=== PATIENT | male | born 1945 | race Caucasian/White ===

== ENCOUNTER 2024-07-27 12:56 | Inpatient (IN) | payer MEDICARE, SELFPAY ==
[2024-07-27] VITALS (60 sets, daily range): BP systolic 60–146; BP diastolic 48–105; BMI 23.8
[2024-07-27] MEDS: NSS 1000 IV ×2 (09:55→10:15)
--- NOTE | 2024-07-27 10:13 | ED.GENMED ---
History of Present Illness
General
Chief Complaint: Chest Pain
Source: patient and ambulance crew
Exam Limitations: none
Time Seen by Provider: 07/27/24 10:02
Nursing documentation reviewed up to this point in time: agreed with
History of Present Illness
History of Present Illness:
Patient presents to ED from home secondary to chest pain. Per paramedics, initial 911 call was placed secondary to chest pain at home. When arrived at patient's house, patient was complaining of chest pain and was found to be diaphoretic and
hypotensive. Patient was given 500 mL normal saline route to the hospital. Patient was given 325 mg aspirin by patient's spouse prior to arrival by paramedics. Upon arrival in ED, patient is found to be hypotensive and patient reports feeling
fatigued/tired. However, patient denies chest pain. Denies headache. Denies shortness of breath. Denies nausea. Denies neck pain. Denies sore throat. Denies recent illness. Denies previous history of similar symptoms.
Review of Systems
Review of Systems
Allergies reviewed?: Yes
All Other Systems: ROS reviewed and negative except as documented in HPI and ROS
Constitutional: Reports no symptoms
EENT: Reports no symptoms
Respiratory: Reports no symptoms; Denies trouble breathing
Cardiac: Reports chest pain and diaphoresis; Denies palpitations
ABD/GI: Reports no symptoms; Denies nausea or vomiting
: Reports no symptoms
Musculoskeletal: Reports no symptoms
Skin: Reports no symptoms
Neurological: Reports dizzy; Denies headache or weakness
Phy Exam
Physical Exam
Physical Exam:
Physical Exam
General: moderate distress, acutely ill. afebrile. hypotensive.
Head: nc/at. eomi
Neck: supple. no meningeal signs.
Heart: s1/s2 regular rate and rhythm, no murmur. equal radial pulses.
Lungs: no acute respiratory distress. clear bilaterally
Abdomen: normal bowel sounds. not tender.
Neuro: alert and oriented. no focal sensory/motor deficit. left facial droop noted with intermittent slurred speech.
Skin: no rash
Psychiatric: well kept. interactive and cooperative
Extremities: no edema. no calf tenderness.
Scores
Heart Score for Chest Pain Patients
STEMI patient?: Not applicable
Course
Orders/Labs/Results
Orders:
Orders
07/27/24 09:55
Electrocardiogram (*1) Urgent
Reason for Study: Chest Pain
07/27/24 09:56
EKG- Treatment ONCE
07/27/24 Lunch
NPO
Allow oral meds: No
Allow clear liquids: No
07/27/24 10:10
CR Chest Portable - 1 View Urgent
Comment:
Reason For Exam: chest pain/hypoxia
Reason Study Needs to be Portable: Patient Unstable
07/27/24 10:25
Arterial Blood Gas Urgent
%Oxygen/Room Air: 80
Complete Blood Count/With Diff Urgent
Comprehensive Metabolic Panel Urgent
Magnesium Urgent
Troponin I Urgent
07/27/24 10:33
NORepinephrine 4 MG/250 ML [Levophed] 4 mg in 250 ml .ROUTE .STK-MED
07/27/24 10:44
Lactic Acid Urgent
07/27/24 10:45
NORepinephrine 4 MG/250 ML [Levophed] 4 mg in 250 ml IV PER PROTOCOL
Initial dose in mcg/min, then titrate:: 5
Titrate to keep:: SBP > 90 mmHg
Titrate by mcg/min:: 1-2 mcg/min
Frequency of titrations (minutes):: 5
Maximum dose in ICU in mcg/min:: 30
Maximum dose in IMU in mcg/min:: 8
Maximum dose in IVU in mcg/min:: 4
Begin to taper infusion when:: Remained at goal for 4hrs
Taper by mcg/min:: 1-2 mcg/min
Frequency of taper (minutes) if patient maintains goal:: 30
Taper to off?: Yes
If infusion off & no longer maintaining goal:: Contact Provider
07/27/24 10:56
CT Chest Pe Study Urgent
Comment:
Reason For Exam: chest pain/hypoxia
07/27/24 11:01
Straight cath- Treatment ONCE
0.9% Sodium Chloride 1000 ml [Nss] 1,000 ml IV BOLUS
07/27/24 11:02
0.9% Sodium Chloride 1000 ml [Nss] 1,000 ml IV BOLUS
07/27/24 11:21
PT/INR [Prothrombin Time] Urgent
PTT Urgent
07/27/24 11:22
Urinalysis Reflex To Culture Urgent
Date Specimen was Collected: 07/27/24
Time Specimen was Collected: 11:21
Urine Microscopic Reflex Cult Urgent
07/27/24 11:23
Heparin 5,000 units .ROUTE .STK-MED ONE
07/27/24 11:25
Heparin 6,000 units IV NOW STA
Nursing to Place Non Medication Order As Directed
Physician Order: PTT 6 hours after initial start of Heparin infusion
Above order entered?: Yes
07/27/24 11:30
Heparin 52211 Units/250 ml 25,000 units in 250 ml IV PER PROTOCOL
Weight to be used for heparin protocol in kilograms (kg):: 75.2
Protocol:: DVT/PE
PTT Goal Range to be used:: PTT 73 to 111 seconds
Order type:: Initial
INITIAL Infusion Dose (UNITS/KG/hr) & then follow protocol:: 18 units/kg/hr
Infusion Dose in UNITS/hr & then follow protocol (UNITS/hr):: 1,400
INFUSION RATE in mL/hr & then follow protocol (mL/hr):: 14
For DVT/PE algorithm, re-bolus for low PTT?: Yes
PTT less than or equal to 64 seconds:: Re-bolus 80 units/kg (max 10,000units). Increase by 300 units/hr
(+ 3mL/hr)
PTT 64.1 to 72.9 seconds:: Re-bolus 40 units/kg (max 5,000 units). Increase by 200 units/hr
(+ 2mL/hr)
PTT 73 to 111 seconds:: Target Range. No change in rate.
PTT 111.1 to 130.9 seconds:: Decrease rate by 200 units/hr (- 2 mL/hr)
PTT 131 to 199.9 seconds:: HOLD for 1 hr. Then decrease by 200 units/hr (- 2mL/hr)
PTT greater than or equal to 200 seconds:: HOLD for 2 hrs & Notify Provider. Then decrease by 300 units/hr
(- 3mL/hr)
Lab follow-up:: Each change, PTT q6h until 2 consecutive are therapeutic. Then
PTT daily.
07/27/24 11:32
Heparin 3,000 units IV PRN PRN
Heparin 6,000 units IV PRN PRN
07/27/24 12:15
Echo 2D MMode Color/Doppler Routine
Reason for Study: Submassive pulmonary embolism
07/27/24 12:40
Admit/Transfer Patient As Directed
Co-Sign Provider:
Level of Care: Inpatient admission
Assign to:: ICU
Physician / Group: [facility]
Diagnosis: acute bilateral PE, shock, acute hypoxic RF
Reason for Hospitalization: acute bilateral PE, shock, acute hypoxic RF
Expected length of stay greater than two midnights?: Yes
ELOS- Estimated Length of Stay in days: 4
I certify the patient meets the requirements for IP care: Yes
Code Status As Directed
Resuscitation Status: Full Code
PRN Pain Medication Management As Directed
May give lesser potent ordered pain med per pt: Yes
preference::
Protocol:: Medication orders for pain may be administered in a
manner that supports deferring to patient preference
when the pt is:
- Requesting an ordered lesser potent pain medication.
Least to most potent pain medications are defined
as: acetaminophen < NSAID < tramadol < opioids
(morphine, oxycodone, hydromorphone).
- Requesting a lesser dose of the same medication IF
ORDERED.
- Requesting a less intrusive route of administration
if both routes are prescribed by the provider (PO <
IV).
07/27/24 12:44
CARDIOLOGY CONSULT Routine
Consulting Provider: Loren Hayden
Was physician already notified: Yes
M[employer]al [employer] Consult Routine
Consulting Provider: Akash Jones
Was physician already notified: Yes
07/27/24 14:08
0.9% Sodium Chloride [Nss (Preservative Free)] See Protocol IV PRN PRN
Acetaminophen [Tylenol] 650 mg PO Q4HPRN PRN
Bisacodyl [Dulcolax] 10 mg RECTAL [id number] PRN
Docusate W/Senna [Senokot-S] 1 tablet PO BIDPRN PRN
FOLic ACID [Folvite] 1 mg 0.9% Sodium Chloride 50 ml [Nss] 50 ml IV DAILYPRN
Lorazepam [Ativan] 1 mg IV Q1HPRN PRN
Lorazepam [Ativan] 1 mg PO Q2HPRN PRN
Lorazepam [Ativan] 2 mg IV Q1HPRN PRN
Polyethylene Glycol Powder [Miralax] 17 grams PO DAILYPRN PRN
07/27/24 14:08
Case Management Consult Once
Case Management Consult: Other
Comment: Substance abuse counseling
DIETARY CONSULT Routine
Reason for Consult: Nutrition support, possible refeeding guidelines
Activity As Directed
Activity Level: As Tolerated
MSAS SCORE As Directed
MSAS Score 0-4: Repeat MSAS every 2 hours until 0-4 for three consecutive assessments, then every 4 hours x 48
hours.
MSAS Score 5-7: For MILD withdrawl symptoms. Repeat MSAS and RASS every 2 hours
MSAS Score 8-11: For MODERATE withdrawal symptoms. Repeat MSAS and RASS every 1 hour. Consider ICU or IMU
level of care.
MSAS Score > 11: For SEVERE withdrawal symptoms. Repeat MSAS and RASS every 1 hour. Notify provider, consider
ICU level of care.
MSAS Additional Instructions: If no improvement or no decrease in score from severe to moderate within 12
hours, consult psychiatry
MSAS Notify Provider: Notify provider if patient requires more than 10 mg of Lorazepam in eight hour period.
Vital Signs As Directed
Frequency: Per unit guidelines
07/27/24 15:13
Urine Drug Abuse Screen Routine
Date Specimen was Collected: 07/27/24
Time Specimen was Collected: 14:38
07/27/24 18:16
Troponin I Q6H
07/27/24 20:00
Thiamine Injection 200 mg IV Q12
07/28/24 02:18
Basic Metabolic Panel IN AM
Complete Blood Count/With Diff IN AM
Magnesium IN AM
Phosphorus IN AM
07/28/24 08:00
FOLic ACID [Folvite] 1 mg PO DAILY
Nicotine [Nicoderm Transdermal] 14 mg TRANSDERM DAILY
07/28/24 09:00
US Periph Venous LOWER Ext Matty Routine
Reason For Exam: LE swelling/acute PE
07/29/24 06:00
Basic Metabolic Panel IN AM
Complete Blood Count/With Diff IN AM
07/30/24 06:00
Basic Metabolic Panel IN AM
Complete Blood Count/With Diff IN AM
07/30/24 20:00
Thiamine HCl [Vitamin B1] 100 mg PO BID
Abnormal Lab Results
07/27/24 07/27/24 07/27/24
10:25 10:44 11:22
WBC 21.5 H 10^3/uL
(4.8-10.8)
MCV 99.4 H fL
(80.0-94.0)
MCH 33.4 H pg
(27.0-31.0)
RDW 14.9 H %
(11.5-14.5)
Abs Immat Gran (auto) 0.2 H 10^3/uL
(0-0.05)
Absolute Neuts (auto) 17.6 H 10^3/uL
(1.4-6.5)
Absolute Monos (auto) 1.8 H 10^3/uL
(0.1-0.6)
Immature Gran % 1.0 H %
(0-0.5)
Neutrophils % 81.5 H %
(42.2-75.2)
Lymphocytes % 8.2 L %
(20.5-51.1)
pCO2 31 L mmHg
(35-48)
pO2 47 L* mmHg
(83-108)
HCO3 17.9 L mmol/L
(21-28)
ABG O2 Sat (Measured) 80.0 L %
(94-98)
Chloride 108 H mmol/L
(98-107)
Carbon Dioxide 19 L mmol/L
(22-30)
Glucose 168 H mg/dl
(70-99)
Lactic Acid 2.2 H mmol/L
(0.7-2.0)
Total Bilirubin 1.4 H mg/dl
(0.2-1.3)
Troponin I 7.520 H* ng/ml
Urine Ketones 2+ A
(Negative)
Urine Bilirubin 1+ A
(Negative)
Urine Urobilinogen 2+ A
(Neg - 1+)
Leukocyte Esterase Rfl Trace A
(Negative)
Urine Bacteria (Reflex) Few A
(Negative)
07/27/24 10:25
07/27/24 10:25
Vital Signs
Initial and Last Documented VS:
Initial Vital Signs
Temp Pulse Resp BP Pulse Ox
98.8 F 101 24 64/52 97
07/27/24 09:56 07/27/24 09:56 07/27/24 09:56 07/27/24 09:56 07/27/24 09:56
Last Documented Vital Signs
Temp Pulse Resp BP Pulse Ox
98.5 F 85 21 103/66 92
07/28/24 07:51 07/28/24 07:00 07/28/24 07:00 07/28/24 07:00 07/28/24 07:59
MDM/Problems Addressed
MDM/Problems Addressed:
Patient evaluated immediately upon arrival, secondary to hypotension and hypoxia. Patient started on IV fluids immediately along with multiple IV placement peripherally. Chest x-ray without any acute findings. Arterial blood gas confirms hypoxia
with low PaO2 level. Patient will be started on mid flow oxygen. Despite initial IV fluid bolus, patient remains hypotensive. Patient will be started on IV Levophed infusion along with continual IV fluid administration. In light of patient's
presentation, high likelihood and suspicion for pulmonary embolism. As such, stat CTA PE study ordered.
CTA PE study confirms bilateral PE with right heart strain. Elevated troponin noted as well. Patient started on heparin protocol. PERT alert activated.
Discussed with [employer] worker, Dr. Damon, who will come evaluate patient, and afterward speak with IRad attending Dr. Brown, for potential IV thrombolysis. Patient will be admitted to ICU for further evaluation and treatment. Admitting
hospitalist notified via [place] text.
Critical care statement: A total of 100 minutes of critical care time was provided for this patient. This includes management of unstable vital signs, evaluation of the patient at bedside, reviewing the patient's pertinent medical records,
discussion with consultants, review of old EKGs and review of pertinent medical records. This time with separate from time utilized to perform the aforementioned documented procedures
*EKG
Interpreted by ED Provider?: Yes
EKG Intrepretation Date: 07/27/24
Heart Rate: 91
Rate: normal
Rhythm: sinus
Interval: long QT
QRS Pattern: normal QRS
Ischemia: ST depression
*Critical Care Note
Total Time (30-74mins, 75-104mins- exclusive of procedures): 100 min
ED Attending Note
-
Portions of this chart may have been created with voice recognition software.� Occasional wrong word or��sound alike� substitutions may have occurred due to the inherent limitations of voice recognition software.
Discharge Plan
Departure
Patient Disposition: Admit
Date of Disposition: 07/27/24
Time of Disposition: 11:34
Admit to: ICU
Presentation/result/management discussed w/ accepting MD/DO: Hospitalist
Discharge Problem:
Pulmonary embolism
Interventions
Interventions:
*Risk Screen - Suicide Last Done: 07/27/24 09:56
*General Assessment Last Done: 07/27/24 09:56
*Neglect/Abuse Screening Last Done: 07/27/24 13:40
ED- Fall Risk Assessment Last Done: 07/27/24 13:40
*ED COVID-19 Vaccine History Last Done: 07/27/24 11:50
*Nursing Disposition Last Done: 07/27/24 13:40
ED- Cardiac Assessment Last Done: 07/27/24 10:29
Discharge Date and Time
Discharge Date/Time: 07/27/24 13:40
[2024-07-27 10:39] LABS: B.E. -6.2 mmol/L; HCO3 17.9 mmol/L (21-28); PCO2 31 mmHg (35-48); pH 7.37 (7.35-7.45)
[2024-07-27] MEDS: LEVOPHED 250 IV (10:39)
[2024-07-27 10:51] LABS: PO2 47 mmHg (83-108)
[2024-07-27 10:54] LABS: ALT (SGPT) 16 U/L (0-50); AST (SGOT) 42 U/L (17-59); Alkaline Phosphatase 114 U/L (38-126); Blood Urea Nitrogen 11 mg/dl (9-20); Calcium 8.7 mg/dl (8.4-10.2); Carbon Dioxide 19 mmol/L (22-30); Chloride 108 mmol/L (98-107); Estimated Creatinine Clearance 53 ml/min; Glucose 168 mg/dl (70-99); Magnesium 1.6 mg/dl (1.6-2.3); Sodium 142 mmol/L (135-145); Total Bilirubin 1.4 mg/dl (0.2-1.3); Total Protein 6.9 g/dl (6.3-8.2); eGFR > 60.00
[2024-07-27 10:55] LABS: Hematocrit 47.3 % (39.0-52.0); Hemoglobin 15.9 g/dL (13.0-18.0); Mean Corp Hgb Conc. 33.6 g/dL (33.0-37.0); Mean Corpuscular Hgb 33.4 pg (27.0-31.0); Mean Corpuscular Volume 99.4 fL (80.0-94.0); Red Blood Cell Count 4.76 10^6/uL (4.70-6.10); Red Cell Dist. Width 14.9 % (11.5-14.5); White Blood Cell Count 21.5 10^3/uL (4.8-10.8)
--- NOTE | 2024-07-27 11:05 | PHANOTE ---
Addendum entered by Dorothy Dye 07/27/24 12:20:
called patient md on file dr. bourgeois but patient has a form filled out with them that the office can not release inform about his personal information or emergency contact
Addendum entered by Dorothy Dye 07/27/24 11:13:
tried to spoke to patient but he does not know his medication and does not know his number, awaiting spouse to come by. if she does
Original Note:
med rec note- patient has no ecw and patient not registered at this time to call home or family, patient has sertraline 50mg daily filled back in January and no recently medication filled to make sense if the patient was taking them. recently
medication were short term antibiotic
[2024-07-27 11:09] LABS: Lactic Acid 2.2 mmol/L (0.7-2.0)
[2024-07-27 11:37] LABS: Urine Albumin Trace (Neg - Trace); Urine Bilirubin 1+ (Negative); Urine Character Clear (Clear); Urine Color Yellow; Urine Glucose Negative (Negative); Urine Ketone 2+ (Negative); Urine Leukocyte Trace (Negative); Urine Nitrite Negative (Negative); Urine Occult Blood Negative (Negative); Urine Urobilinogen 2+ (Neg - 1+)
[2024-07-27] MEDS: HEPARIN 6000 UNITS IV (11:37)
[2024-07-27] MEDS: HEPARIN 25000 UNITS/250 ML IV (11:38)
[2024-07-27 11:39] LABS: INR 1.11; PT 14.6 Sec (11.4-14.6)
[2024-07-27 11:40] LABS: APTT 33.5 Sec (23.4-35.0)
[2024-07-27 11:59] LABS: Platelet Count 181 10^3/uL (130-400)
[2024-07-27 12:00] LABS: % Basophils 0.4 % (0-2); % Eosinophils 0.7 % (0-6); % Lymphocytes 8.2 % (20.5-51.1); % Monocytes 8.2 % (1.7-9.3); % Neutrophils 81.5 % (42.2-75.2); Absolute Basophils 0.1 10^3/uL (0-0.2); Absolute Eosinophils 0.2 10^3/uL (0-0.7); Absolute Immature Granulocytes 0.2 10^3/uL (0-0.05); Absolute Lymphocytes 1.8 10^3/uL (1.2-3.4); Absolute Monocytes 1.8 10^3/uL (0.1-0.6); Absolute Neutrophils 17.6 10^3/uL (1.4-6.5); Mean Platelet Volume 9.7 fL (7.4-10.4); Nucleated Red Blood Cells % 0 % (-)
--- NOTE | 2024-07-27 12:04 | CON.INTV ---
Consultation
Consultation Request
Date/Time Consultation Requested: 07/27/2024
Date/Time Consultation Performed: 07/27/2024
Performing Provider: Dr. Akash Damon
Reason for Consultation: Shock/pulmonary embolism
Medical History
-
History of Present Illness:
79-year-old man with unknown past medical history, patient seems to have some underlying cognitive impairment unable to provide detailed history, states that he was short of breath for the last 2 days. Found to be hypoxemic and hypotensive,
underwent CT angiogram that demonstrated significant bilateral segmental pulmonary embolism, no significant saddle component. There is signs of RV strain. Did not respond to IV fluid resuscitation, required Levophed, also required mid flow oxygen
up to 15 L. Patient shortness of breath at rest has improved. Does not appear in distress. Able to hold a conversation but seems confused and I think likely baseline.
Unable to locate his for further history.
Patient states that he lives in [place], he does not know his primary doctor, usually does not come to the [facility].
No prior history available in our records.
Patient states that he has been in his usual state of health.
He reports some history of falling in the past.
Denies any cough, phlegm production, wheezing.
Denies leg edema.
No recent travels as per patient.
Past Medical History
Past Medical History: Other (Unknown)
Social History
Tobacco: Other (Unable to obtain)
Family History
Family History: Unable to Obtain (Cognitive impairment)
Allergies / Home Medications
Allergies
Allergy/AdvReac Type Severity Reaction Status Date / Time
Penicillins Allergy Unknown Verified 07/27/24 10:08
Home Medications
�Medication �Instructions �Recorded �Confirmed �Last Taken �Type
Unobtainable 07/27/24 07/27/24 Unknown History
Review of Systems
-
History Source: Patient
All other systems: Negative unless noted
Vitals / Labs / Diagnostic Testing
Vital Signs
Temp Pulse Resp BP Pulse Ox
98.8 F 101 29 122/76 94
07/27/24 09:56 07/27/24 11:45 07/27/24 11:45 07/27/24 11:45 07/27/24 11:45
Lab Data
07/27/24 10:25
07/27/24 10:25
Laboratory Results
07/27/24 07/27/24
10:25 11:21
PT 14.6
INR 1.11
APTT 33.5
pH 7.37
pCO2 31 L
pO2 47 L*
HCO3 17.9 L
O2 Delivery Level
Diagnostic Testing:
Physical Exam
-
HEENT: Normocephalic
Cardiovascular: S1/S2 and JVD (n)
Respiratory: Clear and Non-Labored Respirations
GI: Soft and Non Distended
Neurology: Awake, Alert, No Motor Deficits and Other (Baseline cognitive impairment. Does not recall much history)
Skin: Warm
General: Comfortable and Other (Able to speak in full sentences)
Assessment
-
79-year-old man with unknown past medical history, brought in via EMS for shortness of breath for the last 2 days. His called 911. She is not available for history. Found to have bilateral pulmonary [place], hypotensive, hypoxemia. Required
Levophed I was called in emergently to evaluate patient for possible thrombolysis. 07/27/2020
Acute submassive pulmonary embolism-unprovoked.
CT angiogram 07/27/2024: Reviewed, There are small to moderate volume filling defects within the mid to distal right pulmonary artery extending into right upper, middle and especially lower lobe pulmonary arterial branches of at least moderate
to large volume in the right lower lobe branches. There is some small volume thrombus in the distal left main pulmonary artery. In addition, there are filling defects seen, moderate volume extending into the proximal left upper lobe and lower lobe
pulmonary artery branches. There is mild bowing of the intraventricular septum to the right. The thoracic aorta is normal in caliber and homogeneous in appearance.
Shock: Requiring Levophed due to RV dysfunction from pulmonary embolism
Acute hypoxemic respiratory failure requiring mid flow oxygen 12 L/min due to pulmonary embolism.
Positive troponin due to RV strain
EKG: Signs of RV dysfunction
Leukocytosis likely reactive
Assessment and plan:
Patient is critically ill, requiring vasopressors and mid flow oxygen.
CT scan with moderate clot burden, RV dysfunction.
Positive troponins
High risk category pulmonary embolism-submassive.
-
Currently patient now appears in no distress, on 15 L of supplemental oxygen.
10 mics of Levophed
Mildly tachycardic
Able to sustain conversation. Suspect patient has baseline cognitive impairment as he does not remember much of his past medical history.
not available at this point to provide additional information.
-
Status post IV fluid resuscitation.
Continue Levophed to maintain mean arterial blood pressure 65 mmHg
Will follow renal function
-
Obtain echocardiogram
Lower extremity Doppler
-
Maintain ox supplementation mid flow, keep pulse ox above 90%.
-
Recommend heparin drip-follow PTT.
Once is available I will discuss with her possibility of catheter directed thrombolysis. I think patient would benefit from this.
I will also discussed with interventional radiology once his agrees with potential procedure.
I have discussed the case with the emergency room attending as well.
-
High risk situation.
-
NPO for now.
-
Critical care statement: A total of 50 minutes of critical care time was provided for this patient today. This includes management of unstable vital signs, evaluation of the patient at bedside, reviewing the patient's pertinent medical records
including ventilator settings, arterial blood gases, radiographs, microbiology, laboratory evaluations and discussion with primary team, critical care nursing, and respiratory therapy.
[2024-07-27 12:16] LABS: Urine Bacteria Few (Negative); Urine Red Blood Cell 0-2 /HPF (0-2); Urine White Cell 0-2 /HPF (0-5)
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
--- NOTE | 2024-07-27 13:41 | CON.CAR ---
Consultation
Consultation Request
Date/Time Consultation Requested: 07/27/24
Date/Time Consultation Performed: 07/27/24
Requesting Provider: Dr Basurto
Performing Provider: Dr kang
Reason for Consultation: PE with rv strain.
Medical History
-
Chief Complaint: sob
History of Present Illness:
79-year-old gentleman with with some underlying cognitive impairment, history obtained from chart review and the patient who is poor historian and currently on a NRB mask. He is apparently smoker with has heavy daily alcohol intake and history of
PAD recent hip fracture in 2022 after a fall but does not follow-up with doctors who was found to be hypoxemic and hypotensive on arrival, CT angiogram showed significant bilateral segmental PE with worry for RV strain. He is now on vasopressors
that he did not respond to volume repletion. Oxygen required has increased to mid flow at 15 L.
Past Medical History
Past Medical History: Other (See above)
Past Surgical History: Other
Social History
Tobacco: Smoker
Alcohol: Daily
Family History
Family History: Early CAD (none)
Allergies / Home Medications
Allergy/AdvReac Type Severity Reaction Status Date / Time
Penicillins Allergy Unknown Verified 07/27/24 10:08
�Medication �Instructions �Recorded �Confirmed �Type
Unobtainable 07/27/24 07/27/24 History
Review of Systems
-
All other systems: Negative unless noted
Physical Exam
Vital Signs
Temp Pulse Resp BP Pulse Ox
98.8 F 99 21 113/89 95
07/27/24 09:56 07/27/24 13:20 07/27/24 13:20 07/27/24 13:20 07/27/24 13:20
Lab Results
07/27/24 10:25
07/27/24 10:25
Troponin I 7.520 ng/ml H* 07/27/24 10:25
Physical Exam
General: Well Developed, Well Nourished and Other (Skin around the mouth and nose dusky appearance site looks fine)
HEENT: Normocephalic
Respiratory: Clear; Negative Wheezes, Crackles or Rhonchi
Cardiac: S1/S2 and Regular Rhythm; Negative Murmur, Rub or Peripheral Edema
GI: Soft and Non Tender
Genito-urinary: Negative No Costovertebral Tender
Musculoskeletal: Negative No Clubbing, No Cyanosis or No Edema
Neuro: AO x 3
Impression / Plan
-
Acute submassive PE with right heart strain:
Plan is for thrombolysis, anticoagulation already started.
Right ventricular strain seen on echo as well.
Levophed weaned off, currently blood pressure stable.
Would repeat echo at 3 to 4 weeks to check for resolution.
Acute hypoxemic respiratory failure: Still with very high oxygen demands currently on a nonrebreather when I examined him: Hopefully with treatment of PE this will continue to improve.
Type II MS in the setting of acute submassive PE: Treat underlying issue
-This is a sign of poor prognosis, will continue to trend troponins.
Alcohol abuse: Daily intake, monitor for signs of withdrawal.
Smoker: Counseled to quit.
Patient does not routinely seek medical care, will need to discuss the importance of compliance with medications on discharge.
Critical care time spent in his care was 31 minutes. Plan discussed with Dr. Snatos. Critical care nursing team was available at the bedside during examination.
Data Reviewed
-
EKG: Tracing Personally Visualized and interpreted (Sinus rhythm with left axis deviation, PVCs, diffuse ST depressions, low voltage)
CT Scan: Image Personally Visualized and interpreted (Bilateral PE RV dilation) and Report Reviewed by me (Widespread bilateral prominent PE in the distal right greater and left main pulmonary arteries moderate to large volume of lower lobe
pulmonary arteries bilaterally and findings concerning for right heart strain. No pleural effusion or pericardial effusion noted.)
Medical Tests (Nuc Med, Echo etc): Image Personally Visualized and interpreted (Dilated right ventricle with hypokinesis, normal LV function. MRI)
--- NOTE | 2024-07-27 15:19 | PTCARENOTE ---
Rec'd patient from ED at 1400. Patient alert. Aware he is in the hospital but unsure of why. Education provided on diagnosis and plan of care; patient stating 'I guess I am not going to the beach this weekend'. NSR with PVCs on tele monitor. Rate in
the 90's. No edema. +Doppler pedal pulses bilaterally. Pulse ox 92-95% on 15L MF. Lung sounds shallow, diminished. +BS. Assisted on bedpan for large BM. Voided small amount in urinal. Sample sent to lab as ordered. Heparin drip infusing @ 1400
units/hr through RAC INT. PTT due at 1735. 1445 patient transported to IRAD.
--- NOTE | 2024-07-27 15:27 | CM ---
CM following re: discharge planning.
Reviewed pt's chart,met with pt and spoke to pt's spouse Nevin Garcia [phone].
Pt is a 79 year old male, admitted with primary dx of PE, chest pain. Pt is in IR.
Per spouse, she and the pt lives in [place], no steps to enter. Pt's spouse stated that this is their 3d marriage, they do not have children. Per spouse pt uses a cane and pt's spouse described the pt as an alcoholic, has been drinking daily, choice of
drink- whisky. Pt's spouse stated that pt's mother was an alcoholic. Per spouse pt is a heavy smoker.
Per spouse request, pt referred to [facility] and they will meet with the pt when clinically appropriate
PCP: Dr. Juarez
Pharmacy: [facility]
D/C plan: uncertain at this time and will depend on pt's progress.
CM will follow with discharge plan updates as hospitalization progresses
[2024-07-27 15:43] LABS: Amphetamines Negative (Negative); Barbiturates Negative (Negative); Benzodiazepines Negative (Negative); Buprenorphine Negative (Negative); Cocaine Negative (Negative); Marijuana Negative (Negative); Methadone Negative (Negative); Methamphetamines Negative (Negative); Opiates Negative (Negative); Phencyclidine Negative (Negative); Tricyclic Antidepressants Negative (Negative)
--- NOTE | 2024-07-27 18:03 | PTCARENOTE ---
Patient transported back to ICU from IRAD. Thrombectomy performed. Accessed through right femoral vein. Right groin site assessed- dressing c/d/i. Vitals stable. Pulse ox 99% on 10L MF. NSR with rate in the 90's. Patient requiring frequent reminders
that he must lay flat for 2 hours. Heparin drip to be restarted at 2000 per IR.
--- NOTE | 2024-07-27 18:12 | W.PN.IRAD.PR ---
Procedure Note
-
Post pulmonary thrombectomy. Clot retrieval from R upper and lower branches, L lower branches. Moderate volume of thrombus evacuated. Improved b/l angio post thrombectomy. Mean pressures pre ~19, post ~12. Tolerated well. Purse string suture placed
at R groin venotomy site, will be removed 1-2 days. Pt's spouse updated.
[2024-07-27] MEDS: ATIVAN 1 MG IV ×2 (18:40→20:29)
--- NOTE | 2024-07-27 19:36 | PTCARENOTE ---
Handoff report received from off going RN. Duall RN RLE assessment completed. Pt's right groin dressing is cdi with no hematoma. Doppler pulses are present to bilateral DP. post angio.neurovascular assessment as documented. Patient received on 10L
midflow oxygen. SpO2 at 98%. Pt is oriented x2. States that he is home and not sure reasoning for hospitalization. Teaching provided on remaining flat x2 hours until 1999. The patient is forgetful and continues to attempt to sit up, get oob, and lay
on his side. Teach back assessed and the patient verbalized needing to stay flat for 2 hours. However, pt continues attempts at getting oob. continued redirecting. Sinus rhythm on the monitor. Diminished breath sounds throughout. Tachypeneic with RR
30. Midflow o2 weaned to 8L. SpO2 at 98%. + BS. The patient is incontinent of urine. #25 condom catheter placed. All IV sites are patent. Bed exit alarm in use.Stayed in the room with the patient as he continues attempting to get oob.
[2024-07-27] MEDS: THIAMINE INJECTION 200 MG IV (20:07)
--- NOTE | 2024-07-27 20:18 | PTCARENOTE ---
2000: Heparin restarted at 1400 units/hr. Right upper arm IV removed for pain with flushing.
[2024-07-28] VITALS (15 sets, daily range): BP systolic 92–131; BP diastolic 58–82; BMI 22.3
--- NOTE | 2024-07-28 00:36 | PTCARENOTE ---
Patient reassessed. MSAS 3. Right groin site dressing noted to be soaked through with blood. No hematoma noted. Pressure held for ten minutes. Dressing then removed and new dressing placed -gauze and Tegaderm. Dr. Brown paged and made aware. VSS.
SpO2 at 97% on 6L midflow oxygen. Bed alarm remains in use. Safety measures continued.
[2024-07-28 02:53] LABS: % Basophils 0.3 % (0-2); % Immature Granulocytes 0.7 % (0-0.5); % Lymphocytes 9.6 % (20.5-51.1); % Monocytes 11.3 % (1.7-9.3); % Neutrophils 78.1 % (42.2-75.2); Absolute Basophils 0.1 10^3/uL (0-0.2); Absolute Immature Granulocytes 0.1 10^3/uL (0-0.05); Absolute Lymphocytes 1.7 10^3/uL (1.2-3.4); Absolute Neutrophils 13.5 10^3/uL (1.4-6.5); Hematocrit 38.9 % (39.0-52.0); Hemoglobin 12.8 g/dL (13.0-18.0); Mean Corp Hgb Conc. 32.9 g/dL (33.0-37.0); Mean Corpuscular Volume 100.3 fL (80.0-94.0); Mean Platelet Volume 9.9 fL (7.4-10.4); Nucleated Red Blood Cells % 0 % (-); Platelet Count 166 10^3/uL (130-400); Red Blood Cell Count 3.88 10^6/uL (4.70-6.10); Red Cell Dist. Width 15.6 % (11.5-14.5); White Blood Cell Count 17.2 10^3/uL (4.8-10.8)
[2024-07-28 03:11] LABS: Blood Urea Nitrogen 15 mg/dl (9-20); Calcium 7.7 mg/dl (8.4-10.2); Carbon Dioxide 19 mmol/L (22-30); Chloride 110 mmol/L (98-107); Estimated Creatinine Clearance 58 ml/min; Glucose 96 mg/dl (70-99); Magnesium 1.4 mg/dl (1.6-2.3); Phosphorus 3.9 mg/dl (2.5-4.5); Potassium 4.1 mmol/L (3.5-5.1); Sodium 143 mmol/L (135-145); eGFR > 60.00
[2024-07-28 03:16] LABS: APTT > 200 Sec (23.4-35.0)
[2024-07-28] MEDS: MAGNESIUM SULFATE 50 IV (04:01)
--- NOTE | 2024-07-28 04:37 | PTCARENOTE ---
Patient reassessed. VSS. Pt cleansed and bed sheet changed. Pt's magnesium resulted for 1.4. mag sulfate 2 grams ordered and infusing.
[2024-07-28] MEDS: FOLVITE PO (07:10)
[2024-07-28] MEDS: NICODERM TRANSDERMAL 14 MG TRANSDERM (07:38)
[2024-07-28] MEDS: FOLVITE 50.2 MG IV (07:38)
[2024-07-28] MEDS: THIAMINE INJECTION 200 MG IV ×2 (07:39→19:14)
--- NOTE | 2024-07-28 08:24 | PTCARENOTE ---
Assumed care of patient at 0700. AAOx3. Vague understanding of why he is in the hospital. Forgetful. Pupils equal and reactive, +3mm. MAEx4. MSAS 2. Required prn Ativan 2x last night. NSR with pvcs on tele monitor. Rate in the 70-80's. Right groin
site intact. +Doppler pulses. Weaned to RA. Pulse ox 91-92%. Lung sounds shallow/diminished. Occasional dry cough. +BS. Remains NPO per MD order. Last BM yesterday afternoon. Voiding via condom catheter. Repositioned into chair position in bed and
assisted in turning on a movie. Bed alarm on and safe environment maintained.
--- NOTE | 2024-07-28 08:45 | W.PN.INTV ---
Today's Communication / Plan
Recommendations
Continue heparin drip for today
Follow PTT
Advance diet
Repeat BMP later
Encourage oral intake
Continue to monitor for alcohol withdrawal-Ativan as needed
Physical therapy/Occupational Therapy
Transfer to telemetry
Assessment
-
79-year-old man with unknown past medical history, brought in via EMS for shortness of breath for the last 2 days. His called 911. She is not available for history. Found to have bilateral pulmonary Vendor, hypotensive, hypoxemia. Required
Levophed I was called in emergently to evaluate patient for possible thrombolysis. 07/27/2020
Acute submassive pulmonary embolism-unprovoked.
CT angiogram 07/27/2024: Reviewed, There are small to moderate volume filling defects within the mid to distal right pulmonary artery extending into right upper, middle and especially lower lobe pulmonary arterial branches of at least moderate
to large volume in the right lower lobe branches. There is some small volume thrombus in the distal left main pulmonary artery. In addition, there are filling defects seen, moderate volume extending into the proximal left upper lobe and lower lobe
pulmonary artery branches. There is mild bowing of the intraventricular septum to the right. The thoracic aorta is normal in caliber and homogeneous in appearance.
Shock: Requiring Levophed due to RV dysfunction from pulmonary embolism
Acute hypoxemic respiratory failure requiring mid flow oxygen 12 L/min due to pulmonary embolism.
Positive troponin due to RV strain
EKG: Signs of RV dysfunction
Leukocytosis likely reactive
Assessment and plan:
-
Status post successful embolectomy emergently 07/27/2024.
Echocardiogram noted: RV dysfunction, dilation and decreased function.
Lower extremity Dopplers: Pending
Excellent response
Oxygen at supplementation has been weaned off
Levophed has been weaned off-shock has resolved.
Patient asymptomatic at rest.
-
Will maintain heparin drip for additional 24 hours.
Follow PTT
If stable tomorrow can transition to oral anticoagulants.
Likely will require lifelong anticoagulation given severity of thromboembolic events.
-
Increased troponins due to RV dysfunction. Patient denies any chest pain.
Repeat once more and if trending down no need to follow-up.
Eventual cardiology evaluation in the outpatient setting.
states that the patient usually does not follow-up with doctors.
-
Leukocytosis likely reactive. Follow.
-
None gap metabolic acidosis-suspect due to normal saline resuscitation
Encourage oral intake.
DC IV fluids
Repeat labs tomorrow morning if patient remains stable and asymptomatic.
Hypomagnesemia-repleted. Will repeat BMP plus mag plus Phos 1 PM.
-.
Daily drinker-high risk for alcohol withdrawal.
MSAS protocol
-
Smoking cessation encouraged-nicotine patch placed
Recommend outpatient pulmonary follow-up if patient desires.
-
Maintain telemetry
Okay to get out of bed, physical therapy evaluation.
-
Advance diet to regular
-
From my perspective okay to transfer out of the critical care unit to telemetry.
Pulmonary will continue to follow
Subjective Dataa
Subjective Data
Date of Service:
Date of Service: July 28, 2024
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
Subjective:
Patient feels better today
Oxygen has been weaned off
Levophed has been weaned off
Denies chest pain or lightheadedness
Tolerating anticoagulation
Review of Systems
Cardiopulmonary: Dyspnea (improved)
GI: Abdominal Pain (n), Nausea (n) and Vomiting (n)
Neuro: Headache (n)
Objective Data
Data Reviewed
Vital Signs / I&O / Oxygen:
Vital Signs
Temp Pulse Resp BP Pulse Ox
98.5 F 80 27 112/67 92
07/28/24 07:51 07/28/24 08:00 07/28/24 08:00 07/28/24 08:00 07/28/24 08:01
Intake and Output
07/27/24 07/28/24 07/29/24
06:59 06:59 06:59
Intake Total 1262 / 1323.2 72.2 / 72.2
Output Total 390 / 390
Balance 872 / 933.2 72.2 / 72.2
SaO2 92
Nasal Cannula flow liters per 15
minute
Physical Exam
General: Comfortable
HEENT: Normocephalic
Cardiovascular: S1-S2
Respiratory: Non-Labored Respirations
GI: Soft and Non Distended
Neurology: Awake, AO x 3 and No Motor Deficits
Labs/Micro/Reports
Lab Data
07/28/24 02:18
07/28/24 02:18
Laboratory Results
07/27/24 07/27/24 07/27/24
10:25 11:21 11:25
PT 14.6
INR 1.11
APTT 33.5 Cancelled
pH 7.37
pCO2 31 L
pO2 47 L*
HCO3 17.9 L
O2 Delivery Level
07/27/24 07/28/24
17:35 02:18
PT
INR
APTT Cancelled > 200 H*
pH
pCO2
pO2
HCO3
O2 Delivery Level
--- NOTE | 2024-07-28 09:53 | PTCARENOTE ---
US b/l LE completed.
--- NOTE | 2024-07-28 10:03 | W.PN.CD ---
Today's Communication / Plan
-
continue current care per medicine and Pulmonary
will need op evaluation for CAD
will need f/u echo at 4 weeks
Please let us know when he is discharged and we will arrange follow up
I will see again at your request
Impression / Plan
-
Acute submassive PE with right heart strain:
s/p thrombectomy 07/27/24': Post pulmonary thrombectomy. Per Dr Brown 'Clot retrieval from R upper and lower branches, L lower branches. Moderate volume of thrombus evacuated. Improved b/l angio post thrombectomy. Mean pressures pre ~19, post ~12.
Tolerated well.
Right ventricular strain seen on echo as well.
Levophed weaned off, currently blood pressure stable.
Would repeat echo at 3 to 4 weeks to check for resolution.
Acute hypoxemic respiratory failure: resolved now on room air
Type II NM in the setting of acute submassive PE: Treat underlying issue
-This is a sign of poor prognosis, peak 7.52
-nonivasive testing upon recovery as op
Anemia:
-Hgb down to 12.8 from 15.9
-plan per medicine
Alcohol abuse: Daily intake, monitor for signs of withdrawal.
Smoker: Counseled to quit.
Patient does not routinely seek medical care, I discussedthe importance of compliance and follow up on discharge.
Physical Exam
Vital Signs/Labs
Vital Signs
Temp Pulse Resp BP Pulse Ox
98.5 F 79 27 125/80 94
07/28/24 07:51 07/28/24 10:00 07/28/24 10:00 07/28/24 10:00 07/28/24 10:00
07/27/24 07/28/24 07/29/24
06:59 06:59 06:59
Actual Weight 70.5 kg
07/28/24 02:18
PT 14.6 Sec (11.4-14.6) 07/27/24 11:21
INR 1.11 07/27/24 11:21
APTT > 200 Sec (23.4-35.0) H* 07/28/24 02:18
Magnesium 1.4 mg/dl (1.6-2.3) L 07/28/24 02:18
LAB Results
07/27/24 07/27/24 07/28/24
10:25 18:16 00:45
Troponin I 7.520 H* 6.620 H* Cancelled
07/28/24 07/28/24 07/28/24
01:24 06:33 06:57
Troponin I 5.620 H* Cancelled Cancelled
Physical Exam
Constitutional: No acute distress
Cardiovascular: Rhythm & rate is regular, Pedal edema is absent, JVD pressure is normal and Systolic murmur absent
Respiratory: Respiratory effort normal, Lungs clear to auscul., Wheeze Absent, Crackles Absent and Rhonchi Absent
Neuro/Psych: AO x 3
Data Reviewed
-
Date of Service: July 28, 2024
EKG: Other (Telemetry sinus )
--- NOTE | 2024-07-28 10:05 | PTCARENOTE ---
Patient downgraded to tele level. Diet advanced. Breakfast ordered. VSS.
--- NOTE | 2024-07-28 11:14 | PTCARENOTE ---
Patient assisted oob to chair x2 RNs. Chair alarm on.
[2024-07-28 11:43] LABS: APTT 97.1 Sec (23.4-35.0)
--- NOTE | 2024-07-28 13:17 | W.PN.HOSP.TC ---
Today's Communication/Plan
-
hep gtt
transition to po DOAC
Assessment / Plan
Assessment / Plan
ARF with Hypoxia with documented spo2 of 73%
-Wean o2
Acute Submassive PE
-Unprovoked
-Status post successful embolectomy
-Hep gtt
-Hep protocol
-PTT q6H
-Will need DOAC on DC
Shock - Obstructive/Cardiogenic
-Wean pressor support as toelrated
-Map >65
[id number]
-Related right heart strain and hypoxia from PE
NAGMA
-Encourage Po intake
Leukocytoisis
-Likely reactive
-Monitor off of Atb
Macrocytic anemia
-Check b12/folate
Anticipated Discharge: > 48 hours
Subjective/Interval History
-
Date of Service: July 28, 2024
seen and examined
no new complaints
no acute overnight events
states ge us ready to go home
Objective Data
-
Labs:
Laboratory Results
07/28/24 07/28/24 07/28/24
02:18 11:23 13:11
WBC 17.2 H
Hgb 12.8 L
Hct 38.9 L
Plt Count 166
APTT > 200 H* 97.1 H
Sodium 143 Pending
Potassium 4.1 Pending
Chloride 110 H Pending
Carbon Dioxide 19 L Pending
BUN 15 Pending
Creatinine 1.1 Pending
Glucose 96 Pending
Calcium 7.7 L Pending
07/28/24
17:25
WBC
Hgb
Hct
Plt Count
APTT Pending
Sodium
Potassium
Chloride
Carbon Dioxide
BUN
Creatinine
Glucose
Calcium
Vital Signs:
Vital Signs
Temp Pulse Resp BP Pulse Ox
97.5 F 86 29 103/58 94
07/28/24 12:11 07/28/24 12:00 07/28/24 12:00 07/28/24 12:00 07/28/24 10:00
I&O
07/27/24 07/28/24 07/29/24
06:59 06:59 06:59
Intake Total 1262 / 1323.2 716.2 / 716.2
Output Total 390 / 390 120 / 120
Balance 872 / 933.2 596.2 / 596.2
Physical Exam
-
General: Well Developed, Well Nourished and No Apparent Distress
HEENT: Normocephalic, Atraumatic and Moist Mucous Membranes
Respiratory: Clear to Auscultation
Cardiac: Regular Rhythm and S1/S2
GI: Soft, Nontender and Nondistended
Musculoskeletal: No Clubbing, No Cyanosis and No Edema
Skin: Warm and Dry
Neuro: Awake, Alert, Oriented and AO x 3
[2024-07-28 13:34] LABS: Blood Urea Nitrogen 16 mg/dl (9-20); Calcium 8.3 mg/dl (8.4-10.2); Carbon Dioxide 24 mmol/L (22-30); Chloride 107 mmol/L (98-107); Estimated Creatinine Clearance 56 ml/min; Glucose 113 mg/dl (70-99); Magnesium 2.3 mg/dl (1.6-2.3); Sodium 141 mmol/L (135-145); eGFR > 60.00
--- NOTE | 2024-07-28 14:48 | W.PN.UPDATE ---
Update Note
Progress Note Update
Pt up in chair, NAD, eating lunch. Asking re: going home. No complaints.
Doing well 1 day post percutaneous pulmonary suction embolectomy. Right groin with dry dressing at venotomy site, no hematoma. Will remove purse string suture 07/29. Hgb dec likely partially related to the embolectomy procedure. To begin DAOC as per
Medicine. Discussed smoking cessation.
[2024-07-28] MEDS: HEPARIN 25000 UNITS/250 ML IV (14:53)
[2024-07-28 17:20] LABS: APTT 102.2 Sec (23.4-35.0)
[2024-07-29] VITALS (7 sets, daily range): BP systolic 112–152; BP diastolic 64–95; O2SAT 87–94
[2024-07-29 06:28] LABS: % Basophils 0.3 % (0-2); % Eosinophils 2.8 % (0-6); % Immature Granulocytes 0.6 % (0-0.5); % Lymphocytes 19.5 % (20.5-51.1); % Monocytes 11.3 % (1.7-9.3); % Neutrophils 65.5 % (42.2-75.2); Absolute Eosinophils 0.3 10^3/uL (0-0.7); Absolute Immature Granulocytes 0.1 10^3/uL (0-0.05); Absolute Lymphocytes 2.2 10^3/uL (1.2-3.4); Absolute Monocytes 1.3 10^3/uL (0.1-0.6); Absolute Neutrophils 7.5 10^3/uL (1.4-6.5); Hematocrit 35.1 % (39.0-52.0); Hemoglobin 11.8 g/dL (13.0-18.0); Mean Corp Hgb Conc. 33.6 g/dL (33.0-37.0); Mean Corpuscular Hgb 33.3 pg (27.0-31.0); Mean Corpuscular Volume 99.2 fL (80.0-94.0); Nucleated Red Blood Cells % 0 % (-); Platelet Count 195 10^3/uL (130-400); Red Blood Cell Count 3.54 10^6/uL (4.70-6.10); Red Cell Dist. Width 15.3 % (11.5-14.5); White Blood Cell Count 11.5 10^3/uL (4.8-10.8)
[2024-07-29 06:38] LABS: APTT 97.1 Sec (23.4-35.0)
[2024-07-29 07:06] LABS: Blood Urea Nitrogen 15 mg/dl (9-20); Calcium 7.9 mg/dl (8.4-10.2); Carbon Dioxide 26 mmol/L (22-30); Chloride 105 mmol/L (98-107); Estimated Creatinine Clearance 69 ml/min; Glucose 93 mg/dl (70-99); Potassium 3.4 mmol/L (3.5-5.1); Sodium 139 mmol/L (135-145); eGFR > 60.00
[2024-07-29 08:05] LABS: Folate 5.4 ng/ml (2.76-20); Vitamin B12 454 pg/ml (239-931)
[2024-07-29] MEDS: FOLVITE 1 MG PO (08:15)
[2024-07-29] MEDS: NICODERM TRANSDERMAL 14 MG TRANSDERM (08:15)
[2024-07-29] MEDS: THIAMINE INJECTION 200 MG IV ×2 (08:15→20:05)
[2024-07-29] MEDS: ELIQUIS 10 MG PO ×2 (10:33→20:04)
--- NOTE | 2024-07-29 12:28 | W.PN.HOSP.TC ---
Today's Communication/Plan
-
trnasition to po doac
loading dose eliquis 10mg bid x7day followed by 5mg twice a day indefinently
ambulatory pulse ox
-if remains >90% will dc home
More than 30 minutes spent in discharge including
Final examination of the patient
Summarizing hospital stay
Instructions for continuing care to all relevant caregivers
Preparation of discharge records, prescriptions, and referral forms
Total time spent (in minutes): 33min
Assessment / Plan
Assessment / Plan
ARF with Hypoxia with documented spo2 of 73%
-Wean o2
Acute Submassive PE
-Unprovoked
-Status post successful embolectomy
-Hep gtt, transition to po DOAC
Shock - Obstructive
-Resolved
[id number]
-Related right heart strain and hypoxia from PE
NAGMA
-Encourage Po intake
Leukocytoisis
-Likely reactive
-Monitor off of Atb
Macrocytic anemia
-Avoid alcohol use
-No indication for transfusion
Alcohol use disorder
-Used to drink heavy but stopped
-Now has 2 shots before bed to ehlp him to sleep if needed
-home with thiamine and folate
Anticipated Discharge: Today
Subjective/Interval History
-
Date of Service: July 29, 2024
seen and examined
no new complaints
no acute overnight events
hep gtt transition to po doac
Objective Data
-
Labs:
Laboratory Results
07/29/24
06:02
WBC 11.5 H
Hgb 11.8 L
Hct 35.1 L
Plt Count 195
APTT 97.1 H
Sodium 139
Potassium 3.4 L
Chloride 105
Carbon Dioxide 26
BUN 15
Creatinine 0.9
Glucose 93
Calcium 7.9 L
Vital Signs:
Vital Signs
Temp Pulse Resp BP Pulse Ox
98.0 F 79 18 152/87 94
07/29/24 11:19 07/29/24 11:19 07/29/24 11:19 07/29/24 11:19 07/29/24 11:19
I&O
07/28/24 07/29/24 07/30/24
06:59 06:59 06:59
Intake Total 1262 / 1323.2 1251.2 / 1251.2
Output Total 390 / 390 470 / 470
Balance 872 / 933.2 781.2 / 781.2
Physical Exam
-
General: Well Developed, Well Nourished and No Apparent Distress
HEENT: Normocephalic, Atraumatic and Moist Mucous Membranes
Respiratory: Clear to Auscultation
Cardiac: Regular Rhythm and S1/S2
Breast: Deferred by me
GI: Soft, Nontender, Nondistended and Normal Bowel Sounds
Musculoskeletal: No Clubbing, No Cyanosis and No Edema
Skin: Warm and Dry
Neuro: Awake, Alert, Oriented and AO x 3
Psych: Calm
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
--- NOTE | 2024-07-29 12:47 | PTCARENOTE ---
Patient ambulated for over 50 ft on unit using a rolling walker with assistance of PCT November and maintained a pulse oxygen saturation between 94-95% while on room air. Patient reported no difficulty breathing or shortness of breath, and was steady
and had a good gait throughout the walk. Does not need supplemental O2 at this time.
--- NOTE | 2024-07-29 13:11 | PN.IRAD.UPD ---
Update Note - IRAD
- -
pursestring removed at bedside. Patient tolerated procedure well. New dry, clean bandaid placed over site.
--- NOTE | 2024-07-29 13:20 | CM ---
Chart reviewed and corrections caseworker reached out to patient's spouse, Nevin regarding discharge and patient's spouse stated that she did not speak with a physician and will not have any further conversation with corrections caseworker till she speaks with
physician. Physician made aware, patient also made aware.
Plan; Home waiting on update from physician.
--- NOTE | 2024-07-29 13:21 | W.PN.PUL3 ---
Today's Communication / Plan
-
Oral anticoagulation indefinitely
Advised to refrain from alcohol and smoking.
Outpatient pulmonary follow-up
Sign off
Assessment
-
79-year-old man with unknown past medical history, brought in via EMS for shortness of breath for the last 2 days. His called 911. She is not available for history. Found to have bilateral pulmonary Murphy, hypotensive, hypoxemia. Required
Levophed I was called in emergently to evaluate patient for possible thrombolysis. 07/27/2020
Acute submassive pulmonary embolism-unprovoked.
CT angiogram 07/27/2024: Reviewed, There are small to moderate volume filling defects within the mid to distal right pulmonary artery extending into right upper, middle and especially lower lobe pulmonary arterial branches of at least moderate to
large volume in the right lower lobe branches. There is some small volume thrombus in the distal left main pulmonary artery. In addition, there are filling defects seen, moderate volume extending into the proximal left upper lobe and lower lobe
pulmonary artery branches. There is mild bowing of the intraventricular septum to the right. The thoracic aorta is normal in caliber and homogeneous in appearance.
Shock: Requiring Levophed due to RV dysfunction from pulmonary embolism
Acute hypoxemic respiratory failure requiring mid flow oxygen 12 L/min due to pulmonary embolism.
Positive troponin due to RV strain
EKG: Signs of RV dysfunction
Leukocytosis likely reactive
Assessment and plan:
-
Stable overnight hemodynamically.
Status post successful embolectomy emergently 07/27/2024.
Echocardiogram noted: RV dysfunction, dilation and decreased function.
Lower extremity Dopplers: Nonocclusive distal DVT.
Excellent response
Oxygen at supplementation has been weaned off
Levophed has been weaned off-shock has resolved.
Patient asymptomatic at rest.
Patient is asking to go home.
-
Discussed with primary team, transition to oral anticoagulants. Indefinitely.
-
Increased troponins due to RV dysfunction. Patient denies any chest pain.
Repeat once more and if trending down no need to follow-up.
Eventual cardiology evaluation in the outpatient setting.
states that the patient usually does not follow-up with doctors.
-.
Daily drinker-high risk for alcohol withdrawal.
MSAS protocol
-
Smoking cessation encouraged-nicotine patch placed
Recommend outpatient pulmonary follow-up if patient desires.
-
Perspective.
Outpatient pulmonary follow-up, information left in the chart
Signed off
Subjective Data
-
Date of Service:
Date of Service: July 29, 2024
Chief Complaint: Pulmonary Follow Up (Submassive pulmonary embolism-status post thromboembolectomy)
Subjective:
No new complaints
Patient would like to go home
No oxygen requirements
Tolerating oral anticoagulant
Review of Systems
Cardiopulmonary: Dyspnea (none at rest)
GI: Abdominal Pain (n) and Nausea (n)
Neuro: Headache (n)
Objective Data
Data Reviewed
Vital Signs / I&O / Oxygen:
Vital Signs
Temp Pulse Resp BP Pulse Ox
98.0 F 79 18 152/87 94
07/29/24 11:19 07/29/24 11:19 07/29/24 11:19 07/29/24 11:19 07/29/24 11:19
Intake and Output
07/28/24 07/29/24 07/30/24
06:59 06:59 06:59
Intake Total 1262 / 1323.2 1251.2 / 1251.2
Output Total 390 / 390 470 / 470
Balance 872 / 933.2 781.2 / 781.2
SaO2 94
Nasal Cannula flow liters per 15
minute
Physical Exam
General: Comfortable
HEENT: Normocephalic
Cardiovascular: S1-S2
Respiratory: Non-Labored Respirations
GI: Soft and Non Distended
Neurology: Awake, Alert, Oriented and No Motor Deficits
Skin: Warm
Labs/Micro/Reports
Lab Data
07/29/24 06:02
07/29/24 06:02
Laboratory Results
07/28/24 07/29/24
17:01 06:02
APTT 102.2 H 97.1 H
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
[2024-07-30 03:27] VITALS: BP 146/71
[2024-07-30 07:25] VITALS: BP 152/78
[2024-07-30 08:18] LABS: % Basophils 0.6 % (0-2); % Eosinophils 4.8 % (0-6); % Immature Granulocytes 0.6 % (0-0.5); % Lymphocytes 20.5 % (20.5-51.1); % Monocytes 10.2 % (1.7-9.3); % Neutrophils 63.3 % (42.2-75.2); Absolute Basophils 0.1 10^3/uL (0-0.2); Absolute Eosinophils 0.5 10^3/uL (0-0.7); Absolute Immature Granulocytes 0.1 10^3/uL (0-0.05); Absolute Neutrophils 6.3 10^3/uL (1.4-6.5); Hematocrit 36.7 % (39.0-52.0); Hemoglobin 12.4 g/dL (13.0-18.0); Mean Corp Hgb Conc. 33.8 g/dL (33.0-37.0); Mean Corpuscular Hgb 33.2 pg (27.0-31.0); Mean Corpuscular Volume 98.4 fL (80.0-94.0); Mean Platelet Volume 9.7 fL (7.4-10.4); Nucleated Red Blood Cells % 0 % (-); Platelet Count 249 10^3/uL (130-400); Red Blood Cell Count 3.73 10^6/uL (4.70-6.10); White Blood Cell Count 9.9 10^3/uL (4.8-10.8)
[2024-07-30 08:24] LABS: APTT 48.2 Sec (23.4-35.0)
[2024-07-30 08:41] LABS: Blood Urea Nitrogen 11 mg/dl (9-20); Calcium 8.6 mg/dl (8.4-10.2); Carbon Dioxide 25 mmol/L (22-30); Chloride 105 mmol/L (98-107); Estimated Creatinine Clearance 69 ml/min; Glucose 85 mg/dl (70-99); Potassium 3.5 mmol/L (3.5-5.1); Sodium 140 mmol/L (135-145); eGFR > 60.00
[2024-07-30] MEDS: FOLVITE 1 MG PO (09:30)
[2024-07-30] MEDS: ELIQUIS 10 MG PO (09:31)
[2024-07-30] MEDS: THIAMINE INJECTION 200 MG IV (09:31)
[2024-07-30] MEDS: NICODERM TRANSDERMAL 14 MG TRANSDERM (09:31)
[2024-07-30 10:40] VITALS: BP 146/78; PULSE 84; O2SAT 94
[2024-07-30 11:43] VITALS: BP 135/83
--- NOTE | 2024-07-30 14:40 | W.PN.HOSP.TC ---
Today's Communication/Plan
-
DC home
More than 30 minutes spent in discharge including
Final examination of the patient
Summarizing hospital stay
Instructions for continuing care to all relevant caregivers
Preparation of discharge records, prescriptions, and referral forms
Total time spent (in minutes): 46mins
Assessment / Plan
Assessment / Plan
ARF with Hypoxia with documented spo2 of 73%
-Off of O2. Even with ambulation remains at 9495%.
Acute Submassive PE
-Unprovoked
-Status post successful embolectomy
-Hep gtt, transition to po DOAC
Shock - Obstructive
-Resolved
[id number]
-Related right heart strain and hypoxia from PE
NAGMA
-Encourage Po intake
Leukocytoisis
-Likely reactive
-Monitor off of Atb
Macrocytic anemia
-Avoid alcohol use
-No indication for transfusion
Alcohol use disorder
-Used to drink heavy but stopped
-Now has 2 shots before bed to ehlp him to sleep if needed
-home with thiamine and folate
Evaluated by psychiatry for capacity evaluation as his Nevin was concerned due to the choices and his behaviors.
Discharge home
Will have social work give him resources for drug and alcohol
Anticipated Discharge: Today
Subjective/Interval History
-
Date of Service: July 30, 2024
Seen and examined. No new complaints. No acute overnight events.
We had a lengthy discussion at bedside again about alcohol and cigarette/tobacco use avoidance. Potential side effects such as lung cancer COPD blood clots. With alcohol alcohol withdrawal seizures falls intracranial bleeding while on Eliquis. He
verbalized understanding. States he wants to live. States he understands he has to change the way he lives.
Objective Data
-
Labs:
Laboratory Results
07/30/24
07:41
WBC 9.9
Hgb 12.4 L
Hct 36.7 L
Plt Count 249 D
APTT 48.2 H
Sodium 140
Potassium 3.5
Chloride 105
Carbon Dioxide 25
BUN 11
Creatinine 0.9
Glucose 85
Calcium 8.6
Vital Signs:
Vital Signs
Temp Pulse Resp BP Pulse Ox
97.8 F 76 18 135/83 95
07/30/24 11:43 07/30/24 11:43 07/30/24 11:43 07/30/24 11:43 07/30/24 11:43
I&O
07/29/24 07/30/24 07/31/24
06:59 06:59 06:59
Intake Total 1251.2 / 1251.2 480 / 480
Output Total 470 / 470 850 / 850
Balance 781.2 / 781.2 -370 / -370
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
[2024-07-30 15:15] VITALS: BP 146/87
== END 2024-07-30 15:44 | disposition home or self-care (01) | DRG 163 ==
LOC: 4 WEST ACU 12:56
PROVIDERS: Radiology Vascular & Interventional Radiology; ADMITTING PHYSICIAN Internal Medicine; ATTENDING PHYSICIAN Hospitalist; CONSULT PHYSICIAN Internal Medicine Cardiovascular Disease; CONSULT PHYSICIAN Internal Medicine Critical Care Medicine; EMERGENCY PHYSICIAN Emergency Medicine; OTHER PHYSICIAN Psychiatry & Neurology Psychiatry
PROC: 5A0935A Assistance with Respiratory Ventilation, Less than 24 Consecutive Hours, High Flow/Velocity Cannula (ICD-10-PCS; 2024-07-27)
PROC: 02CR3ZZ Extirpation of Matter from Left Pulmonary Artery, Percutaneous Approach (ICD-10-PCS; 2024-07-29)
PROC: B31S1ZZ Fluoroscopy of Right Pulmonary Artery using Low Osmolar Contrast (ICD-10-PCS; 2024-07-29)
PROC: B31T1ZZ Fluoroscopy of Left Pulmonary Artery using Low Osmolar Contrast (ICD-10-PCS; 2024-07-29)
PROC: 02CQ3ZZ Extirpation of Matter from Right Pulmonary Artery, Percutaneous Approach (ICD-10-PCS; 2024-07-29)
PROC: 4A033B3 Measurement of Arterial Pressure, Pulmonary, Percutaneous Approach (ICD-10-PCS; 2024-07-29)
DX: I26.99 Other pulmonary embolism without acute cor pulmonale (principal); I21.A1 Myocardial infarction type 2; J96.01 Acute respiratory failure with hypoxia; R57.0 Cardiogenic shock; E87.20 Acidosis, unspecified; I82.432 Acute embolism and thrombosis of left popliteal vein; E83.42 Hypomagnesemia; R41.89 Other symptoms and signs involving cognitive functions and awareness; D64.9 Anemia, unspecified; F10.10 Alcohol abuse, uncomplicated; M54.9 Dorsalgia, unspecified; D72.829 Elevated white blood cell count, unspecified; I11.9 Hypertensive heart disease without heart failure; F17.200 Nicotine dependence, unspecified, uncomplicated; Z91.81 History of falling; Z88.0 Allergy status to penicillin; Z91.199 Patient's noncompliance with other medical treatment and regimen due to unspecified reason; Z87.81 Personal history of (healed) traumatic fracture
CPT/HCPCS: 36015; 37184; 51701; 71045; 71275; 75743; 76937; 80048; 80053; 80306; 81003; 81015; 82607; 82746; 82805; 83605; 83735; 84100; 84484; 85025; 85610; 85730; 93005; 93306; 93970; 94761; 96365; 96366; 96367; 97162; 99291; 99292; 99406; C1757; C1769; C1887; Q9967